=== PATIENT | female | born 1960 | race African-American/Black ===

== ENCOUNTER 2021-07-16 09:14 | Inpatient (IN) | payer OTHER ==
[2021-07-16] MEDS ORDERED: ACETAMINOPHEN 1000 MG/100 ML BAG IVPB ONE (10:20)
[2021-07-16] MEDS ORDERED: VANCOMYCIN 1 GM in D5W (PRE-DOCKED) 1,000 MG/250 ML IVPB ONE (10:47)
[2021-07-16] MEDS ORDERED: PIPERACILLIN/TAZOB 4.5 GM 4.5 GM in DEXTROSE 5%-WATER 100 ML IVPB ONE (10:47)
[2021-07-16 11:53] LABS: VENOUS BASE EXCESS 15.3 mmol/L (-2-2); VENOUS O2 SATURATION 53.9 % (70-80); VENOUS PH 7.318 (7.310-7.410)
[2021-07-16 11:56] LABS: VENOUS PCO2 86.7 mmHg (38-52)
[2021-07-16 12:02] LABS: HEMATOCRIT 21.4 % (32.4-45.2); HEMOGLOBIN 7.2 GM/dL (10.7-15.3); MCH 30.3 pg (25.7-33.7); MCHC 33.7 g/dl (32.0-36.0); MEAN CELL VOLUME 90.1 fl (80-96); MEAN PLT VOLUME 7.8 fl (7.5-11.1); PLATELET COUNT 417 10^3/uL (134-434); RBC 2.38 M/mm3 (3.60-5.2); RDW 15.3 % (11.6-15.6); WHITE BLOOD COUNT 16.8 K/mm3 (4.0-10.0)
[2021-07-16 12:07] LABS: INR 1.2 (0.83-1.09); PROTHROMBIN TIME (PATIENT) 13.8 SEC (9.7-13.0)
[2021-07-16 12:10] LABS: ACTIVATED PTT 31.7 SECONDS (25.2-36.5)
[2021-07-16 12:17] LABS: CHLORIDE 88 mmol/L (98-107); SODIUM 135 mmol/L (136-145)
[2021-07-16 12:19] LABS: ALBUMIN 2.2 g/dl (3.4-5.0); ANION GAP 6 MMOL/L (8-16); BLOOD UREA NITROGEN 23.4 mg/dL (7-18); CALCIUM 9.4 mg/dL (8.5-10.1); CO2 41 mmol/L (21-32); GLUCOSE,RANDOM 141 mg/dL (74-106)
[2021-07-16 12:22] LABS: CREATININE 0.7 mg/dL (0.55-1.3); SGOT/AST 36 U/L (15-37); SGPT/ALT 47 U/L (13-61)
[2021-07-16 12:24] LABS: BILIRUBIN,TOTAL 0.3 mg/dL (0.2-1); TOT PROT 6.8 g/dl (6.4-8.2)
[2021-07-16 12:25] LABS: ALK PHOS 90 U/L (45-117)
[2021-07-16 13:17] LABS: PLATELET ESTIMATE ADEQUATE
[2021-07-16 13:18] LABS: OVALOCYTE 2+
[2021-07-16] MEDS ORDERED: ACETAMINOPHEN INJECTION 100 ML IVPB ONE (13:40)
[2021-07-16] MEDS ORDERED: PIPERACILLIN/TAZOB 4.5 GM 4.5 GM/100 ML BAG IVPB ONE (13:41)
[2021-07-16] MEDS ORDERED: VANCOMYCIN 1 GRAM (PRE-DOCKED) 1,000 MG/250 ML BAG IVPB ONE (13:41)
[2021-07-16 16:44] LABS: EPI CELLS 3 /uL (0-25.1); HYALINE CASTS 5 /uL (0-3.1); PH,URINE 6.5 (5.0-8.0); URINE APPEARANCE CLEAR; URINE BACTERIA 289 /uL (0-1359); URINE BILIRUBIN NEGATIVE (NEGATIVE); URINE COLOR YELLOW; URINE GLUCOSE (UA) NEGATIVE (NEGATIVE); URINE KETONE NEGATIVE (NEGATIVE); URINE LEUK ESTERASE 2+ (NEGATIVE); URINE NITRITE NEGATIVE (NEGATIVE); URINE PROTEIN 2+ (NEGATIVE); URINE RBC 22 /uL (0-23.9); URINE WBC 210 /uL (0-25.8)
[2021-07-16] MEDS ORDERED: PIPERACILLIN/TAZOB 3.375 GM 3.375 GM in DEXTROSE 5%-WATER - 50 ML IVPB ONE (22:00)
[2021-07-17] MEDS: PANTOPRAZOLE SODIUM 40 MG VIAL IVPUSH SCH ×3 (00:28→21:57)
[2021-07-17] MEDS ORDERED: PIPERACILLIN/TAZOB 3.375 GM 3.375 GM/50 ML BAG IVPB ONE (01:51)
[2021-07-17] MEDS ORDERED: PANTOPRAZOLE SODIUM 40 MG VIAL ONE ×2 (05:39→09:16)
[2021-07-17] MEDS: D5-1/2NS+20 MEQ KCL - 20 MEQ/1,000 ML INFUS.BAG IV SCH ×2 (07:44→20:10)
[2021-07-17 08:28] LABS: HEMATOCRIT 19.5 % (32.4-45.2); MCH 31.1 pg (25.7-33.7); MCHC 34.9 g/dl (32.0-36.0); MEAN CELL VOLUME 89.1 fl (80-96); PLATELET COUNT 333 10^3/uL (134-434); RBC 2.19 M/mm3 (3.60-5.2); RDW 15.3 % (11.6-15.6); WHITE BLOOD COUNT 7.4 K/mm3 (4.0-10.0)
[2021-07-17 08:32] LABS: HEMOGLOBIN 6.8 GM/dL (10.7-15.3)
[2021-07-17 08:55] LABS: BLOOD UREA NITROGEN 29.2 mg/dL (7-18); CALCIUM 9.4 mg/dL (8.5-10.1)
[2021-07-17 08:58] LABS: BILIRUBIN,TOTAL 0.5 mg/dL (0.2-1); TOT PROT 6.5 g/dl (6.4-8.2)
[2021-07-17 10:55] LABS: IRON SERUM 13 ug/dL (50-175)
[2021-07-17 10:56] LABS: TOTAL IRON BINDING CAPACITY 246 ug/dL (250-450)
[2021-07-17] MEDS ORDERED: ACETAMINOPHEN 1000 MG/100 ML BAG IVPB PRN (10:56)
[2021-07-17] MEDS ORDERED: ACETAMINOPHEN INJECTION 100 ML IVPB ONE (11:11)
[2021-07-17 17:24] VITALS: BMI 23.6
[2021-07-17] MEDS ORDERED: CEFEPIME HCL 2 GM VIAL (RESTRICTED TO ID) ONE (17:42)
[2021-07-17] MEDS ORDERED: DEXTROSE 5%-WATER 100 ML IVPB ONE (17:42)
[2021-07-17] MEDS: CEFEPIME 2 GM in DEXTROSE 5%-WATER 2 GM/100 ML BAG IVPB SCH (18:00)
[2021-07-17] MEDS: VANCOMYCIN/WATER FOR INJ (PEG) 1,000 MG/200 ML BAG IVPB SCH (21:57)
[2021-07-18] MEDS: CEFEPIME 2 GM in DEXTROSE 5%-WATER 2 GM/100 ML BAG IVPB SCH ×3 (03:00→17:30)
[2021-07-18] MEDS ORDERED: DEXTROSE 5%-WATER 100 ML IVPB ONE ×3 (03:14→17:25)
[2021-07-18] MEDS ORDERED: CEFEPIME HCL 2 GM VIAL (RESTRICTED TO ID) ONE ×3 (03:14→17:24)
[2021-07-18] MEDS: D5-1/2NS+20 MEQ KCL - 20 MEQ/1,000 ML INFUS.BAG IV SCH ×3 (05:44→21:09)
[2021-07-18 06:50] LABS: BASO % 0.3 % (0-2.0); EOS % 1.4 % (0-4.5); HEMATOCRIT 22.4 % (32.4-45.2); HEMOGLOBIN 7.8 GM/dL (10.7-15.3); MCH 30.6 pg (25.7-33.7); MCHC 34.8 g/dl (32.0-36.0); MEAN CELL VOLUME 88.1 fl (80-96); MEAN PLT VOLUME 7.9 fl (7.5-11.1); MONO % 17.2 % (3.8-10.2); NEUT % 69.1 % (42.8-82.8); PLATELET COUNT 332 10^3/uL (134-434); RBC 2.54 M/mm3 (3.60-5.2); RDW 15.4 % (11.6-15.6); WHITE BLOOD COUNT 7.1 K/mm3 (4.0-10.0)
[2021-07-18 07:09] LABS: ALBUMIN 1.9 g/dl (3.4-5.0); CALCIUM 9.3 mg/dL (8.5-10.1)
[2021-07-18 07:10] LABS: BLOOD UREA NITROGEN 26.4 mg/dL (7-18)
[2021-07-18 07:13] LABS: CREATININE 0.8 mg/dL (0.55-1.3)
[2021-07-18 07:14] LABS: BILIRUBIN,TOTAL 0.6 mg/dL (0.2-1); TOT PROT 6.2 g/dl (6.4-8.2)
[2021-07-18] MEDS: VANCOMYCIN/WATER FOR INJ (PEG) 1,000 MG/200 ML BAG IVPB SCH ×2 (09:53→21:09)
[2021-07-18] MEDS: PANTOPRAZOLE SODIUM 40 MG VIAL IVPUSH SCH ×2 (09:53→21:09)
[2021-07-18] MEDS ORDERED: ALPRAZolam 0.25 MG TABLET PO ONE (10:28)
[2021-07-18] MEDS: ALBUTEROL SO4 2.5/IPRATROPIUM 0.5 INH SOL 3 ML VIAL.NEB. NEB SCH ×3 (11:40→20:25)
[2021-07-18] MEDS ORDERED: DEXAMETHASONE SOD PHOSPHATE 20 MG/5 ML VIAL IVPB ONE (20:55)
[2021-07-18] MEDS ORDERED: DEXAMETHASONE SOD PHOSPHATE 10 MG/1 ML VIAL ONE (21:11)
[2021-07-18] MEDS ORDERED: DEXAMETHASONE SOD PHOSPHATE 10 MG/1 ML VIAL IVPB ONE (21:15)
[2021-07-19] MEDS ORDERED: CEFEPIME HCL 2 GM VIAL (RESTRICTED TO ID) ONE ×3 (01:02→13:49)
[2021-07-19] MEDS ORDERED: DEXTROSE 5%-WATER 100 ML IVPB ONE ×3 (01:03→13:49)
[2021-07-19] MEDS: CEFEPIME 2 GM in DEXTROSE 5%-WATER 2 GM/100 ML BAG IVPB SCH ×3 (01:13→17:48)
[2021-07-19] MEDS: MANNITOL 25% 12.5 GM/50 ML VIAL IVPB SCH ×3 (01:52→18:22)
[2021-07-19 07:34] LABS: HEMATOCRIT 29.4 % (32.4-45.2); HEMOGLOBIN 9.9 GM/dL (10.7-15.3); LYMPH % 7.3 % (8-40); MCH 29.6 pg (25.7-33.7); MCHC 33.6 g/dl (32.0-36.0); MEAN CELL VOLUME 87.9 fl (80-96); MEAN PLT VOLUME 7.6 fl (7.5-11.1); MONO % 2.8 % (3.8-10.2); NEUT % 89.9 % (42.8-82.8); PLATELET COUNT 366 10^3/uL (134-434); RBC 3.34 M/mm3 (3.60-5.2); RDW 15.2 % (11.6-15.6); WHITE BLOOD COUNT 8.3 K/mm3 (4.0-10.0)
[2021-07-19 07:38] LABS: CALCIUM 9.8 mg/dL (8.5-10.1)
[2021-07-19 07:39] LABS: ALBUMIN 2.1 g/dl (3.4-5.0); BLOOD UREA NITROGEN 20.2 mg/dL (7-18)
[2021-07-19 07:42] LABS: CREATININE 0.8 mg/dL (0.55-1.3)
[2021-07-19 07:43] LABS: BILIRUBIN,TOTAL 0.6 mg/dL (0.2-1); TOT PROT 6.6 g/dl (6.4-8.2)
[2021-07-19] MEDS: ALBUTEROL SO4 2.5/IPRATROPIUM 0.5 INH SOL 3 ML VIAL.NEB. NEB SCH ×4 (08:00→20:05)
[2021-07-19] MEDS: VANCOMYCIN/WATER FOR INJ (PEG) 1,000 MG/200 ML BAG IVPB SCH ×2 (09:00→21:19)
[2021-07-19] MEDS: PANTOPRAZOLE SODIUM 40 MG VIAL IVPUSH SCH ×2 (09:45→21:19)
[2021-07-19] MEDS: D5-1/2NS+20 MEQ KCL - 20 MEQ/1,000 ML INFUS.BAG IV SCH (17:47)
[2021-07-20] MEDS ORDERED: CEFEPIME HCL 2 GM VIAL (RESTRICTED TO ID) ONE ×3 (00:24→17:21)
[2021-07-20] MEDS ORDERED: DEXTROSE 5%-WATER 100 ML IVPB ONE ×3 (00:24→17:22)
[2021-07-20] MEDS: CEFEPIME 2 GM in DEXTROSE 5%-WATER 2 GM/100 ML BAG IVPB SCH ×3 (01:04→17:26)
[2021-07-20] MEDS: MANNITOL 25% 12.5 GM/50 ML VIAL IVPB SCH (02:50)
[2021-07-20] MEDS: ALBUTEROL SO4 2.5/IPRATROPIUM 0.5 INH SOL 3 ML VIAL.NEB. NEB SCH ×4 (08:10→20:45)
[2021-07-20] MEDS: VANCOMYCIN/WATER FOR INJ (PEG) 1,000 MG/200 ML BAG IVPB SCH (08:50)
[2021-07-20] MEDS: PANTOPRAZOLE SODIUM 40 MG VIAL IVPUSH SCH ×2 (09:22→21:10)
[2021-07-20] MEDS ORDERED: ALBUTEROL SO4 2.5/IPRATROPIUM 0.5 INH SOL 3 ML VIAL.NEB. NEB ONE (23:35)
[2021-07-21] MEDS ORDERED: CEFEPIME HCL 2 GM VIAL (RESTRICTED TO ID) ONE ×3 (00:02→17:17)
[2021-07-21] MEDS ORDERED: DEXTROSE 5%-WATER 100 ML IVPB ONE ×3 (00:02→17:17)
[2021-07-21] MEDS: ACETAMINOPHEN 1000 MG/100 ML BAG IVPB PRN ×3 (00:04→17:20)
[2021-07-21] MEDS ORDERED: ALPRAZolam 0.25 MG TABLET GT ONE (01:39)
[2021-07-21] MEDS: CEFEPIME 2 GM in DEXTROSE 5%-WATER 2 GM/100 ML BAG IVPB SCH ×3 (02:07→17:22)
[2021-07-21] MEDS ORDERED: LORazepam 2 MG/ML SDV VIAL IVPUSH ONE ×2 (04:30→12:30)
[2021-07-21 07:17] LABS: BASO % 0.4 % (0-2.0); EOS % 0.6 % (0-4.5); HEMATOCRIT 30.2 % (32.4-45.2); HEMOGLOBIN 10.2 GM/dL (10.7-15.3); LYMPH % 12.5 % (8-40); MCHC 33.7 g/dl (32.0-36.0); MEAN CELL VOLUME 88.9 fl (80-96); MEAN PLT VOLUME 7.7 fl (7.5-11.1); MONO % 9.4 % (3.8-10.2); NEUT % 77.1 % (42.8-82.8); PLATELET COUNT 369 10^3/uL (134-434); RDW 15.6 % (11.6-15.6); WHITE BLOOD COUNT 11.5 K/mm3 (4.0-10.0)
[2021-07-21 07:40] LABS: ALBUMIN 2.1 g/dl (3.4-5.0)
[2021-07-21 07:41] LABS: BLOOD UREA NITROGEN 19.8 mg/dL (7-18); MAGNESIUM 1.8 mg/dL (1.8-2.4)
[2021-07-21 07:43] LABS: CREATININE 0.7 mg/dL (0.55-1.3); PHOSPHOROUS 2.3 mg/dL (2.5-4.9)
[2021-07-21 07:45] LABS: BILIRUBIN,TOTAL 0.5 mg/dL (0.2-1); TOT PROT 6.4 g/dl (6.4-8.2)
[2021-07-21] MEDS: ALBUTEROL SO4 2.5/IPRATROPIUM 0.5 INH SOL 3 ML VIAL.NEB. NEB SCH ×4 (08:15→20:05)
[2021-07-21] MEDS: PANTOPRAZOLE SODIUM 40 MG VIAL IVPUSH SCH ×2 (09:32→22:07)
[2021-07-22] MEDS ORDERED: CEFEPIME HCL 2 GM VIAL (RESTRICTED TO ID) ONE ×3 (00:49→16:42)
[2021-07-22] MEDS ORDERED: DEXTROSE 5%-WATER 100 ML IVPB ONE ×3 (00:49→16:42)
[2021-07-22] MEDS: CEFEPIME 2 GM in DEXTROSE 5%-WATER 2 GM/100 ML BAG IVPB SCH ×3 (01:29→16:59)
[2021-07-22] MEDS ORDERED: AMINO ACIDS/PROTEIN HYDROLYS 30 ML LIQUID.PKT PO SCH (08:00)
[2021-07-22] MEDS: ALBUTEROL SO4 2.5/IPRATROPIUM 0.5 INH SOL 3 ML VIAL.NEB. NEB SCH ×4 (08:42→20:07)
[2021-07-22] MEDS: PANTOPRAZOLE SODIUM 40 MG VIAL IVPUSH SCH ×2 (09:15→21:03)
[2021-07-22 13:59] LABS: CSF APPEARANCE CLEAR (CLEAR); CSF COLOR XANTHOCHROMIC (COLORLESS); CSF WBC 4 mm3 (0-5)
[2021-07-22 17:35] LABS: BASO % 0.4 % (0-2.0); EOS % 0.6 % (0-4.5); HEMATOCRIT 31.1 % (32.4-45.2); HEMOGLOBIN 10.1 GM/dL (10.7-15.3); LYMPH % 10.2 % (8-40); MCH 29.5 pg (25.7-33.7); MCHC 32.5 g/dl (32.0-36.0); MEAN CELL VOLUME 90.6 fl (80-96); MONO % 7.7 % (3.8-10.2); NEUT % 81.1 % (42.8-82.8); PLATELET COUNT 417 10^3/uL (134-434); RBC 3.43 M/mm3 (3.60-5.2); RDW 15.6 % (11.6-15.6); WHITE BLOOD COUNT 12.9 K/mm3 (4.0-10.0)
[2021-07-22 17:53] LABS: CALCIUM 9.1 mg/dL (8.5-10.1); MAGNESIUM 1.9 mg/dL (1.8-2.4)
[2021-07-22 17:54] LABS: BLOOD UREA NITROGEN 32.3 mg/dL (7-18)
[2021-07-22 17:56] LABS: CREATININE 0.8 mg/dL (0.55-1.3); PHOSPHOROUS 1.7 mg/dL (2.5-4.9)
[2021-07-22 17:58] LABS: BILIRUBIN,TOTAL 0.2 mg/dL (0.2-1); TOT PROT 6.4 g/dl (6.4-8.2)
[2021-07-22 20:08] VITALS: BP 127/85; PULSE 114; TEMP 98.8
[2021-07-23 09:35] LABS: BF GLUCOSE (CSF ONLY) 107 mg/dL (40-70)
== END 2021-07-22 22:48 | disposition short-term general hospital (02) | DRG 52 ==
LOC: JER 09:14 → JERBED 10:45 → J2W 07-17 15:37
PROVIDERS: ADMIT Family Medicine; ATTEND Family Medicine
PROC: 5A1955Z Respiratory Ventilation, Greater than 96 Consecutive Hours (ICD-10-PCS; principal; 2021-07-17)
DX: G93.6 Cerebral edema (principal); J44.9 Chronic obstructive pulmonary disease, unspecified; E03.9 Hypothyroidism, unspecified; E78.5 Hyperlipidemia, unspecified; E11.9 Type 2 diabetes mellitus without complications; J15.8 Pneumonia due to other specified bacteria; G81.04 Flaccid hemiplegia affecting left nondominant side; G93.89 Other specified disorders of brain; I10 Essential (primary) hypertension; F41.9 Anxiety disorder, unspecified; H66.90 Otitis media, unspecified, unspecified ear; R50.9 Fever, unspecified; K21.00 Gastro-esophageal reflux disease with esophagitis, without bleeding; D72.829 Elevated white blood cell count, unspecified; D64.9 Anemia, unspecified; I69.391 Dysphagia following cerebral infarction; J96.10 Chronic respiratory failure, unspecified whether with hypoxia or hypercapnia; R13.19 Other dysphagia; N39.0 Urinary tract infection, site not specified; B96.1 Klebsiella pneumoniae [K. pneumoniae] as the cause of diseases classified elsewhere; Z93.0 Tracheostomy status
CPT/HCPCS: 0241U-QW; 36415; 36430; 70450-TC; 71045-TC-FY; 74176-TC; 76937; 80053; 81003; 82550; 82553; 82728; 82803; 82945; 82962; 83540; 83550; 83605; 83735; 84100; 84157; 84443; 84484; 85025; 85610; 85730; 86850; 86900; 86901; 86922; 87040; 87070; 87075; 87086; 87102; 87116; 87186; 87205; 87206; 87210; 93005; 93010; 94002; 94640; 99285-25; G0480; J1100; P9058